=== PATIENT | male | born 1945 | race Caucasian/White ===

== ENCOUNTER → 2018-01-04 | Outpatient (CLI) | payer MEDICARE ==
[~2018-01-04] MED LIST: ASPI325T17 PO; CELE200C PO; CHOL5000 PO; DIAZ10TA PO; FINA5TAB4 PO; GLUC1TAB55 PO; MULT-257 PO; OMEP-110 PO; OMNIPAQUE 350 MG/ML, 100ML BOTTLE ONE; OXYC-307 PO; OXYC20TA42 PO; TAMS0.4C2 PO; VITA1TAB19 PO
== END | disposition home or self-care (01) ==
LOC: RAD 11:55
PROVIDERS: ATTEND Internal Medicine Gastroenterology
DX: J98.11 Atelectasis (principal); N28.1 Cyst of kidney, acquired; N32.3 Diverticulum of bladder; M47.896 Other spondylosis, lumbar region
CPT/HCPCS: 74177; Q9967

== ENCOUNTER → 2018-03-22 | Outpatient (CLI) | payer MEDICARE ==
[~2018-03-22] MED LIST changes: -OMNIPAQUE 350 MG/ML, 100ML BOTTLE ONE
== END | disposition home or self-care (01) ==
LOC: CFH 11:11
PROVIDERS: ATTEND Nurse Practitioner Primary Care
DX: M47.892 Other spondylosis, cervical region (principal); M48.02 Spinal stenosis, cervical region; M25.78 Osteophyte, vertebrae
CPT/HCPCS: 72050; 72072

== ENCOUNTER → 2018-04-19 | Outpatient (CLI) | payer MEDICARE | END | disposition home or self-care (01) | LOC: CFH 10:30 | PROVIDERS: ATTEND Nurse Practitioner Primary Care | DX: J43.9 Emphysema, unspecified (principal); M51.34 Other intervertebral disc degeneration, thoracic region; I25.10 Atherosclerotic heart disease of native coronary artery without angina pectoris | CPT/HCPCS: 71250 ==

== ENCOUNTER → 2020-05-31 | Outpatient (CLI) | payer MEDICARE ==
[~2020-05-31] MED LIST changes: -OXYC-307 PO; +OXYC-380 PO
== END | disposition home or self-care (01) ==
LOC: CFH 13:33
PROVIDERS: ATTEND Internal Medicine Cardiovascular Disease
DX: Z13.6 Encounter for screening for cardiovascular disorders (principal); I08.3 Combined rheumatic disorders of mitral, aortic and tricuspid valves; I25.10 Atherosclerotic heart disease of native coronary artery without angina pectoris; E78.00 Pure hypercholesterolemia, unspecified; R06.02 Shortness of breath; J43.9 Emphysema, unspecified; J18.9 Pneumonia, unspecified organism
CPT/HCPCS: 75571; 93306

== ENCOUNTER → 2020-07-01 | Outpatient (CLI) | payer MEDICARE | END | disposition home or self-care (01) | LOC: CVU 08:53 | PROVIDERS: ATTEND Internal Medicine Cardiovascular Disease | DX: I70.0 Atherosclerosis of aorta (principal); I71.4 Abdominal aortic aneurysm, without rupture | CPT/HCPCS: 93978 ==